=== PATIENT | male | born 1935 | race African-American/Black ===

== ENCOUNTER 2016-11-28 05:07 | Day surgery (SDC) | payer OTHER, BC ==
[~2016-11-28] VITALS: Ht 180.3 cm; Wt 84.8 kg
--- NOTE | ~2016-11-28 | EKG ---
[address] [address] ELECTROCARDIOGRAM REPORT Name: LAURA WEISS Room #: [facility]#: [id number] Admission: 11/28/16 Attend Phys: Gilmer Bowles MD Discharge: 11/28/16 Date of : 35 Report #: [id number] THIS REPORT FOR: //name// [facility] Test Date: 2016-11-28 Test Time: 11:43:06 Pat Name: LAURA WEISS Department: Room: 150 10 Gender: M Med Specialist: ROJELIO : 1935 Requested By: Gilmer Bowles Order Number: [id number] MD: Guicho Frye Measurements Intervals [place] Rate: 55 P: 51 OR: 165 QRS: 18 QRSD: 91 T: 44 QT: 439 QTc: 420 Interpretive Statements Sinus bradycardia Baseline wander in lead(s) I,III,aVL No previous ECG available for comparison Electronically Signed On 11-29-2016 7:51:54 DIRECTOR EMBALMER by Guicho Frye [email or web address] <ELECTRONICALLY SIGNED> By: Guicho Frye MD, [facility] 11/29/16 0751 1143 1143 Guicho Frye MD, FACC /EPI
--- NOTE | ~2016-11-28 | O ---
[facility] [place] [address] OPERATIVE REPORT Name: LAURA WEISS Room #: [facility]P [facility].#: [id number] Admission: 11/28/16 Attend Phys: Gilmer Bowles MD Discharge: 11/28/16 Date of : 35 Report #: [id number] THIS REPORT FOR: //name// CC: Jonnathan Bowles DATE OF SERVICE: 11/28/2016 PREOPERATIVE DIAGNOSIS: Bilateral inguinal hernia. POSTOPERATIVE DIAGNOSIS: Bilateral direct inguinal hernia. PROCEDURES PERFORMED: Laparoscopic properitoneal repair of bilateral inguinal hernia with 3DMax lightweight mesh. SURGEON: Gilmer Bowles M.D. ANESTHESIA: General anesthesia. COMPLICATIONS: None. ESTIMATED BLOOD LOSS: 5 mL. DESCRIPTION OF PROCEDURE: With the patient under general anesthesia, a Monique catheter was placed. Abdomen was prepped and draped in sterile fashion. IV antibiotic was administered. Timeout was performed. A 0.25% Marcaine was used to anesthetize the skin adjacent to the umbilicus. A transverse incision was made adjacent to the umbilicus on the right side. The subcutaneous tissue was dissected free. The anterior rectus sheath was identified. The anterior rectus sheath was isolated and opened transversely. The muscle was spread. The space between the muscle and the posterior sheath was then dissected inferiorly bluntly with a finger. An 11-mm balloon trocar was placed through the space. CO2 was placed. A 5-mm trocar was placed about 2 inches below the umbilicus under visualization into the properitoneal space. The rest of the properitoneal space was opened up under visualization with cautery and blunt dissection. The patient had obvious direct defect. The lateral wall on the right side was opened up. A second 5-mm trocar was placed here. This was placed under visualization. No harm to underlying tissue. The left side was then dissected free. There was a left-sided moderately large direct defect identified. The attenuated fascia was adherent to some of the properitoneal fat. This was freed. Once this was freed, the direct defect was easily visualized. Over the cord, the peritoneal reflection was identified. There was no indirect hernia. Once , cord was skeletonized. The right side was then performed. There was a large right direct inguinal hernia. The fascial defect was . On the cord structure, there is a more significant that seems to be over to the [facility] [address] [place] [address] OPERATIVE REPORT Name: LAURA WEISS Room #: DEP [facility] Elizabeth#: [id number] Admission: 11/28/16 Attend Phys: Gilmer Bowles MD Discharge: 11/28/16 Date of : 35 Report #: [id number] cord up to the level of the internal ring, consistent with a small degree of indirect hernia. Peritoneal reflection was freed off the cord. This was brought down posteriorly back in the properitoneal space. Both solis were cleaned up. A large left-sided 3DMax lightweight mesh was placed. This was opened up. This was tacked laterally to the epigastric vessel to the wall and then inferiorly to the Charles's ligament, medially to Charles's ligament and superiorly to the rectus muscle. This was seated well. A right-sided mesh was then used. This was opened up well and held in position with SorbaFix. CO2 was evacuated. The mesh covered the defects well. Trocars were removed. The fascia defect adjacent to the umbilicus was closed with [id number] 0 Vicryl times 2. Skin was irrigated and closed with 5-0 PDS. Steri-Strips and Band-Aids applied. The patient tolerated the procedure well. <ELECTRONICALLY SIGNED> By: Gilmer Bowles MD 01/14/17 1207 [id number] 2326 Gilmer Bowles MD /nt
--- NOTE | ~2016-11-28 | H ---
[facility] [place] [address] HISTORY AND PHYSICAL Name: LAURA WEISS Room #: DEP [facility] M..#: [id number] Admission: 11/28/16 Attend Phys: Gilmer Bowles MD Discharge: 11/28/16 Date of : 35 Report #: [id number] THIS REPORT FOR: //name// CC: Jonnathan Bowles DATE OF SERVICE: 11/28/2016 PREOPERATIVE DIAGNOSIS: Bilateral inguinal hernia, here for laparoscopic repair. HISTORY OF PRESENT ILLNESS: The patient is an 81-year-old who has had a right inguinal hernia for about 15 years. It was initial small, but now is getting quite large. The patient still wants to be active and do things and he would like to have the hernia repair. The hernia also is bothering him when he tries to be active. The discomfort does not seem to last long. The patient said that the hernia was spreading to the other side, the left side. He has noticed a bulge on the left side now for about 5 years. The patient denies nausea or vomiting. The patient denies history of bloating. No difficulty urinating or bowel movement. He does not strain with either one. No prior hernia history. His father did have a hernia repair when he was in the 70s. The patient was found to have bilateral inguinal hernia and is here for repair. PAST MEDICAL HISTORY: The patient is very healthy. Mild cognitive impairment. History of bladder cancer status post treatment. MEDICATIONS: Philip Men multivitamin, vitamin D, fish oil. ALLERGIES: He has allergy to ASPIRIN, which he breaks out in a rash. FAMILY HISTORY: No specific illness. The patient denies any heart problems, lung problem, diabetes, high blood pressure, liver disease or kidney disease. No history of bleeding disorder, no history of blood clot. PAST SURGICAL HISTORY: Bladder cancer treatment. 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 Does not smoke and does not drink. PHYSICAL EXAMINATION: GENERAL: The patient is a well-nourished elderly male in no acute distress. He appears to be younger than his stated age. HEENT: Pupils react to light, accessory muscles are intact. NECK: Soft and supple, no masses. No thyromegaly. LUNGS: Clear to auscultation. [address] [address] HISTORY AND PHYSICAL Name: LAURA WEISS Room #: [facility]..#: [id number] Admission: 11/28/16 Attend Phys: Gilmer Bowles MD Discharge: 11/28/16 Date of : 35 Report #: [id number] HEART: Regular rate and rhythm. No murmur or gallop. ABDOMEN: Soft, nondistended, nontender, no mass, guarding, rigidity, rebound. No ascites. The patient does have bilateral inguinal hernia, right is greater than the left. Both are reducible. EXTREMITIES: No cyanosis, clubbing or edema. IMPRESSION: The patient is an 81-year-old with bilateral inguinal hernia, right greater than left. The right side is getting more and more symptomatic. The patient is recommended to undergo repair of his hernia. Laparoscopic approach was discussed. The patient understands and wishes to proceed. The risk of mesh infection, bleeding and infection were discussed. Postop pain was discussed. LABORATORY DATA: The patient's lab back in April 2016, shows hemoglobin 13.4, white count 2900, platelets 115. His creatinine is 0.98, potassium 3.9, sodium 141. The patient is here for laparoscopic repair of bilateral inguinal hernia. <ELECTRONICALLY SIGNED> By: Gilmer Bowles MD 01/14/17 1207 1013 1048 Gilmer Bowles MD /nt
[~2016-11-28 05:07] MED LIST: AZITHROMYCIN 2250 MG PO; CALCIUM 600 +1 EAC1 PO; CENTRUM SILVER1 EAC2 PO; CITRATE OF MAG296 ML PO; COLACE100 MG PO; NOHOMEMEDICATIONS; OMEGA-31000 M1 PO; ZOFRAN4 MG PO
[2016-11-28 11:20] LABS: HEMATOCRIT 43.2 % (42.0-52.0); HEMOGLOBIN 14.5 gm/dL (14.0-18.0)
[2016-11-28 11:39] VITALS: BP 129/77
[2016-11-28] MEDS ORDERED: FLOMAX0.4 MG PO (14:52)
[2016-11-28] MEDS ORDERED: NORCO 5-325 TA1 EACH PO (14:53)
[2016-11-28 15:27] VITALS: BP 129/77
[2016-12-17] MEDS ORDERED: MIRALAX17 GM PO (13:59)
[2016-12-17] MEDS ORDERED: SENOKOT-S1 TA1 PO (13:59)
== END 2016-11-28 16:55 | disposition home or self-care (01) ==
LOC: TBA 05:07 → OR 05:07
PROVIDERS: Surgery
DX: K40.20 Bilateral inguinal hernia, without obstruction or gangrene, not specified as recurrent (principal); Z87.891 Personal history of nicotine dependence
CPT/HCPCS: 50010; 50101; 50411; 50507; 50555; 50848; 50886; 53307; 56525; 56526; 62110; 62900; 64018; 70005

== ENCOUNTER 2019-12-17 07:50 | Emergency (ER) | payer OTHER ==
[~2019-12-17] VITALS: Ht 180.3 cm; Wt 78.0 kg
[~2019-12-17 07:50] MED LIST changes: +FLOMAX0.4 MG PO; +MIRALAX17 GM PO; +NORCO 5-325 TA1 EACH PO; +SENOKOT-S1 TA1 PO
[2019-12-17] MEDS ORDERED: NORCO 5-325 TA1 EAC1 PO (08:15)
[2019-12-17] MEDS ORDERED: AMOXICILLIN875 MG PO (08:15)
[2019-12-17 09:37] VITALS: BP 149/82
--- NOTE | 2019-12-17 12:34 | EKG ---
[facility] [place] [address] ELECTROCARDIOGRAM REPORT Name: LAURA WEISS Room #: [facility]#: [id number] Admission: 12/17/19 Attend Phys: Discharge: 12/17/19 Date of : 35 Report #: [id number] THIS REPORT FOR: cc: Willi Gonzáles MD, Christopher B. 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: : 1935 Requested By: Desire Gaspar Order Number: [id number] MD: Guicho Frye Measurements Intervals [place] Rate: 53 P: 47 MT: 160 QRS: 18 QRSD: 92 T: 30 QT: 441 QTc: 414 Interpretive Statements Sinus bradycardia Compared to ECG 12/17/2016 12:33:54 No significant change was found Electronically Signed On 12-17-2019 8:58:30 POWER HOUSE ENGINEER by Guicho Frye [email or web address] <ELECTRONICALLY SIGNED> By: Guicho Frye MD, [facility] 0258 5 5 Guicho Frye MD, [facility] /EPI
== END 2019-12-17 09:38 | disposition home or self-care (01) ==
LOC: ER 07:50
DX: K08.89 Other specified disorders of teeth and supporting structures (principal); J32.9 Chronic sinusitis, unspecified

== ENCOUNTER 2021-04-01 17:03 | Emergency (ER) | payer OTHER ==
[~2021-04-01] VITALS: Ht 180.3 cm; Wt 74.8 kg
[~2021-04-01 17:03] MED LIST changes: +AMOXICILLIN875 MG PO; +NORCO 5-325 TA1 EAC1 PO
[2021-04-01 17:04] VITALS: BP 137/78
[2021-04-01 17:51] LABS: ABSOLUTE NEUTROPHILS 1.4 thou/uL (1.4-8.2); BASOPHILS 1.2 % (0.0-2.0); EOSINOPHILS 5.8 % (0.0-3.0); HEMATOCRIT 40.8 % (42.0-52.0); HEMOGLOBIN 13.8 gm/dL (14.0-18.0); LYMPHOCYTES 40.4 % (24.0-44.0); MCH 30.9 pg (26.0-34.0); MCHC 33.7 g/dL (28.0-37.0); MCV 91.6 fL (80.0-100.0); MONOCYTES 9.2 % (1.0-8.0); PLATELET COUNT 124 thou/uL (150-400); POLYS 43.4 % (36.0-66.0); RBC 4.46 mil/uL (4.50-6.00); RDW 14.3 % (10.5-14.5); WBC 3.2 thou/uL (4.0-11.0)
[2021-04-01 17:59] LABS: ANION GAP 11 mmol/L (7-16); BUN 17 mg/dL (7-18); CALCIUM 8.8 mg/dL (8.5-10.1); CHLORIDE 106 mmol/L (98-107); CO2 23 mmol/L (21-32); CREATININE 1.1 mg/dL (0.7-1.3); GLUCOSE 94 mg/dL (74-106); POTASSIUM 4.2 mmol/L (3.5-5.1); SODIUM 140 mmol/L (136-145)
[2021-04-01 18:09] LABS: ALBUMIN 3.7 g/dL (3.4-5.0); SGOT 34 U/L (15-37); SGPT 34 U/L (16-63); TOTAL BILIRUBIN 0.4 mg/dL (0.2-1.0); TOTAL PROTEIN 7.8 g/dL (6.4-8.2); TROPONIN-I <0.06 ng/mL (<0.06)
[2021-04-01 19:32] VITALS: BP 147/79
[2021-04-01 19:55] VITALS: BP 128/74
--- NOTE | 2021-04-02 13:10 | EKG ---
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
== END 2021-04-01 19:51 | disposition home or self-care (01) ==
LOC: ER 17:03 → EROBS 18:48 → ER 18:48
PROVIDERS: Emergency Medicine
DX: R53.1 Weakness (principal); Z20.822 Contact with and (suspected) exposure to COVID-19; R00.1 Bradycardia, unspecified; R42 Dizziness and giddiness; Z88.6 Allergy status to analgesic agent; Z79.899 Other long term (current) drug therapy

== ENCOUNTER → 2021-04-05 | Outpatient (CLI) | payer OTHER | LOC: SJCVC 13:14 | PROVIDERS: ATTEND Internal Medicine Cardiovascular Disease | DX: R42 Dizziness and giddiness (principal); R06.09 Other forms of dyspnea; Z88.6 Allergy status to analgesic agent; Z79.82 Long term (current) use of aspirin; Z79.899 Other long term (current) drug therapy; Z87.891 Personal history of nicotine dependence ==

== ENCOUNTER → 2021-04-13 | Outpatient (CLI) | payer OTHER | LOC: SJCVCIMAG 07:11 | PROVIDERS: ATTEND Internal Medicine Cardiovascular Disease | DX: I49.3 Ventricular premature depolarization (principal); I49.1 Atrial premature depolarization; R00.0 Tachycardia, unspecified; I25.89 Other forms of chronic ischemic heart disease; R06.00 Dyspnea, unspecified; Z88.8 Allergy status to other drugs, medicaments and biological substances; Z87.891 Personal history of nicotine dependence ==

== ENCOUNTER → 2021-05-03 | Outpatient (CLI) | payer OTHER | LOC: SJCVCIMAG 07:11 → ULTRA 09:00 → SJCVCIMAG 09:00 | PROVIDERS: ATTEND Internal Medicine Cardiovascular Disease | DX: N50.3 Cyst of epididymis (principal); N50.89 Other specified disorders of the male genital organs; I86.1 Scrotal varices; I08.0 Rheumatic disorders of both mitral and aortic valves; I49.5 Sick sinus syndrome; I27.20 Pulmonary hypertension, unspecified; R42 Dizziness and giddiness; R55 Syncope and collapse; R06.00 Dyspnea, unspecified; R53.1 Weakness; R94.39 Abnormal result of other cardiovascular function study; Z88.6 Allergy status to analgesic agent; Z79.82 Long term (current) use of aspirin; Z79.899 Other long term (current) drug therapy; Z87.891 Personal history of nicotine dependence ==

== ENCOUNTER → 2021-10-18 | Outpatient (CLI) | payer OTHER | LOC: SJCVC 12:43 | PROVIDERS: ATTEND Internal Medicine Cardiovascular Disease | DX: R94.31 Abnormal electrocardiogram [ECG] [EKG] (principal); R00.1 Bradycardia, unspecified; R94.39 Abnormal result of other cardiovascular function study; R42 Dizziness and giddiness; R06.00 Dyspnea, unspecified; Z88.6 Allergy status to analgesic agent; Z79.82 Long term (current) use of aspirin; Z87.891 Personal history of nicotine dependence; Z79.899 Other long term (current) drug therapy ==